=== PATIENT | male | born 1940 | race Caucasian/White ===

== ENCOUNTER 2017-09-23 13:08 | Emergency (ER) | payer OTHER, BC ==
[~2017-09-23] VITALS: Ht 177.8 cm; Wt 67.2 kg
[2017-09-23 14:10] LABS: HEMATOCRIT 40.9 % (38.0-50.0); HEMOGLOBIN 14.1 G/DL (12.5-16.6); MCH 31.3 PG (29.0-34.0); MCHC 34.5 G/DL (30.0-36.0); MCV 90.9 FL (86-99); PLATELET COUNT 152 K/uL (156-360); RBC DIS.WIDTH-CV 13.2 % (11.8-14.6); RBC DIS.WIDTH-SD 44.3 % (39-53); WHITE BLOOD COUNT 10.9 K/uL (4.1-10.2)
[2017-09-23 14:18] LABS: CHLORIDE 110 mEq/L (99-109); POTASSIUM 3.9 mEq/L (3.7-5.4); SODIUM 145 mEq/L (136-147)
[2017-09-23 14:19] LABS: GLUCOSE 96 mg/dL (70-99)
[2017-09-23 14:23] LABS: CREATININE 1.5 mg/dL (0.6-1.3); GFR ESTIMATE (CALCULATED) 48 mL/min/ (58.99-99999)
[2017-09-23 14:24] LABS: UREA NITROGEN (BUN) 24 mg/dL (9-23)
[2017-09-23 14:31] LABS: TROP-I INTERPRETATION NEGATIVE; TROPONIN-I 0.03 ng/mL (0.0-0.30)
[2017-09-23 18:01] VITALS: BP 151/80
== END 2017-09-23 18:02 | disposition home or self-care (01) ==
LOC: EME 13:08
PROVIDERS: Emergency Medicine
PROC: 3E0234Z Introduction of Serum, Toxoid and Vaccine into Muscle, Percutaneous Approach (ICD-10-PCS; principal; 2017-09-23)
DX: S09.8XXA Other specified injuries of head, initial encounter (principal); S00.81XA Abrasion of other part of head, initial encounter; W06.XXXA Fall from bed, initial encounter; Y92.092 Bedroom in other non-institutional residence as the place of occurrence of the external cause; Z23 Encounter for immunization; I44.7 Left bundle-branch block, unspecified; I48.91 Unspecified atrial fibrillation; M47.892 Other spondylosis, cervical region; F03.90 Unspecified dementia, unspecified severity, without behavioral disturbance, psychotic disturbance, mood disturbance, and anxiety
CPT/HCPCS: 70450; 72125; 80048; 84484; 85027; 93005; 99281; 99285

== ENCOUNTER 2017-10-23 09:28 | Emergency (ER) | payer OTHER, BC ==
[~2017-10-23] VITALS: Ht 182.9 cm; Wt 67.9 kg
[2017-10-23 10:18] LABS: HEMATOCRIT 39.1 % (38.0-50.0); HEMOGLOBIN 13.4 G/DL (12.5-16.6); MCHC 34.3 G/DL (30.0-36.0); MCV 90.5 FL (86-99); PLATELET COUNT 142 K/uL (156-360); RBC DIS.WIDTH-SD 46.9 % (39-53); RED BLOOD COUNT 4.32 M/uL (4.00-5.50); WHITE BLOOD COUNT 10.9 K/uL (4.1-10.2)
[2017-10-23 10:47] LABS: CHLORIDE 105 MEQ/L (99-109); POTASSIUM 3.8 MEQ/L (3.7-5.4); SODIUM 141 MEQ/L (136-147)
[2017-10-23 10:52] LABS: TROP-I INTERPRETATION NEGATIVE; TROPONIN-I < 0.01 ng/mL (0.0-0.30)
[2017-10-23 10:53] LABS: CREATININE 1.2 MG/DL (0.6-1.3); GFR ESTIMATE (CALCULATED) > 59 mL/min/ (58.99-99999); GLUCOSE 136 mg/dL (70-99); UREA NITROGEN (BUN) 20 mg/dL (9-23)
[2017-10-23] MEDS ORDERED: LOPRESSOR50 MG PO (15:39)
[2017-10-23] MEDS ORDERED: ASPIRIN81 M2 PO (15:39)
[2017-10-23] MEDS ORDERED: LIPITOR40 MG PO (15:39)
[2017-10-23] MEDS ORDERED: FINASTERIDE5 MG PO (15:39)
[2017-10-23] MEDS ORDERED: FLOMAX0.4 MG PO (15:40)
[2017-10-23 18:12] VITALS: BP 137/66
== END 2017-10-23 18:02 | disposition home or self-care (01) ==
LOC: EME 09:28
PROVIDERS: Emergency Medicine
DX: J69.0 Pneumonitis due to inhalation of food and vomit (principal); R09.02 Hypoxemia; Z51.5 Encounter for palliative care; R07.89 Other chest pain; F03.90 Unspecified dementia, unspecified severity, without behavioral disturbance, psychotic disturbance, mood disturbance, and anxiety; I10 Essential (primary) hypertension; E78.5 Hyperlipidemia, unspecified; Z79.82 Long term (current) use of aspirin
CPT/HCPCS: 71045; 80048; 81003; 83605; 84484; 85027; 87040; 93005; 94799; 99281; 99284